=== PATIENT | female | born 1975 ===

== ENCOUNTER 2019-06-24 09:15 | Outpatient (CLI) | payer OTHER ==
[2019-06-24] MEDS ORDERED: FLONASE16 GM NASAL (15:51)
[2019-06-24] MEDS ORDERED: ZYRTEC10 M3 PO (15:52)
[2019-06-24] MEDS ORDERED: LIPO-FLAVONOID1 EACH PO (15:53)
== END 2019-06-24 11:30 | disposition home or self-care (01) ==
LOC: OFIC 805 09:15
DX: H91.8X1 Other specified hearing loss, right ear (principal); R09.82 Postnasal drip; H93.12 Tinnitus, left ear